=== PATIENT | female | born 1965 | race Caucasian/White ===

== ENCOUNTER → 2017-07-28 | Outpatient (REF) | payer OTHER ==
[~2017-07-28] MED LIST: BELV10TA PO; SULF1TAB72 PO; [UNRECOGNIZED DRUG - OTHER] PO
== END ==
LOC: M SFHCWAGY 11:04
PROVIDERS: ATTEND Nurse Practitioner Family
DX: Z12.4 Encounter for screening for malignant neoplasm of cervix (principal)

== ENCOUNTER → 2017-07-29 | Outpatient (CLI) | payer OTHER ==
--- NOTE | 2017-07-29 17:27 | REP ---
BILATERAL MAMMOGRAM WITH DIAGNOSTIC MAMMOGRAM LEFT BREAST AND LEFT BREAST ULTRASOUND: Bilateral mammography performed in the MLO and CC projections and compared to prior studies, the most recent of which is 04/28/2016. Reportedly there is a palpable abnormality posteriorly in the lower inner left breast and that area is marked on the skin with a triangular marker. The parenchymal pattern is unchanged with mild scattered fibroglandular elements appearing stable. There is no new mass or clustered microcalcification. Real-time sonographic evaluation of the left breast performed in the region of 8-o'clock left breast at the site of the reported palpable abnormality. No cystic or solid nodule is seen. IMPRESSION: ACR 2 benign. No mass or clustered microcalcifications. There is no mammographic or sonographic evidence of a mass at the site of the reported palpable abnormality in the lower inner left breast. Negative mammogram and ultrasound should not deter biopsy if there is a clinically suspicious palpable mass present. Clinical correlation and followup recommended. Recommend followup mammogram in one year. BI-RADS/ACR category 2 mammogram. Benign finding(s). Routine annual screening mammography (for women over age 40). This mammogram was interpreted with the aid of an FDA-approved computer-aided detection system. The patient states she/he had a clinical breast exam in July 2017. The patient letter being requested is M2. Signed by Massimo Carrera MD 07/29/2017 05:45 P
== END ==
LOC: M RAD 13:50
PROVIDERS: ATTEND Nurse Practitioner Family
DX: N63 Unspecified lump in breast (principal)
CPT/HCPCS: 76642; G0204

== ENCOUNTER → 2017-08-05 | Outpatient (CLI) | payer OTHER ==
--- NOTE | 2017-08-06 02:36 | REP ---
Clinical: Right lower quadrant pelvic pain . Technique: Transabdominal pelvic ultrasound followed by transvaginal examination for better evaluation of the endometrium and adnexa with color Doppler evaluation of the ovaries. Findings: Bladder is unremarkable and measures 10.2 x 9.3 x 6.9 cm . Heterogeneous anteverted uterus measures 6.7 x 3.0 x 4.8 cm and includes 1.0 cm right anterior fibroid, 1.5 cm posterior intramural fibroid, 1.7 cm anterior subserosal fibroid. The endometrial complex measures 3.9 mm thickness. Few subcentimeter Nabothian cyst noted in the lower uterine segment. Right ovary is normal in appearance and vascularity without evidence for torsion. Right ovary measures 2.6 x 1.5 x 1.8 cm ; R I = 0.46 . Left ovary was not identified. No pelvic fluid or adnexal mass lesion . Impression: 1. Heterogeneous anteverted uterus with three small discrete fibroids as described above. 2. Normal right ovary without torsion. Left ovary not visualized.
== END ==
LOC: M WHC 09:06
PROVIDERS: ATTEND Nurse Practitioner Family
DX: R10.31 Right lower quadrant pain (principal)

== ENCOUNTER → 2017-09-28 | Outpatient (REF) | payer OTHER | LOC: M SFHCPLAZ 10:25 | PROVIDERS: ATTEND Family Medicine | DX: R35.8 Other polyuria (principal) ==

== ENCOUNTER → 2018-02-24 | Outpatient (REF) | payer OTHER ==
[2018-02-24 10:52] LABS: PLATELET COUNT, AUTOMATED 286 10^3/uL (150-450)
[2018-02-24 11:14] LABS: INR 0.96; PROTHROMBIN TIME 12.8 SECONDS (12.4-14.5)
[2018-02-24 11:15] LABS: PARTIAL THROMBOPLASTIN TIME 27.2 SECONDS (26.8-37.9)
[2018-02-24 11:17] LABS: COLLAGEN EPINEPHRINE 126 SECONDS (74-162)
[2018-02-24 11:20] LABS: C REACTIVE PROTEIN QUANTITATIV 0.53 MG/DL (0.00-0.30)
== END ==
LOC: M LABDRAW1 10:15
DX: M47.896 Other spondylosis, lumbar region (principal)

== ENCOUNTER → 2018-06-22 | Outpatient (CLI) | payer OTHER ==
[2018-06-22 14:02] LABS: BASO # 0.1 10^3/uL (0.0-0.2); BASO % 0.5 % (0.0-1.0); EOS # 0.5 10^3/uL (0.0-0.50); EOS % 5.4 % (0.0-3.0); HEMATOCRIT 40.1 % (36.0-47.0); HEMOGLOBIN 13.1 g/dl (12.0-15.5); IMMATURE GRANULOCYTE % 0.4 % (0-3.0); LYMPH # 1.7 10^3/uL (1.5-4.5); LYMPH % 17.4 % (24.0-44.0); MEAN CORPUSCULAR HEMOGLOBIN 30.4 pg (27.0-33.0); MEAN CORPUSCULAR HGB CONC 32.7 g/dl (32.0-36.5); MONO # 0.7 10^3/uL (0.0-0.8); MONO % 7.7 % (0.0-5.0); NEUTROPHILS # 6.5 10^3/uL (1.8-7.7); NEUTROPHILS % 68.6 % (36.0-66.0); PLATELET COUNT, AUTOMATED 242 10^3/uL (150-450); RED BLOOD COUNT 4.31 10^6/uL (4.00-5.40); RED CELL DISTRIBUTION WIDTH 12.7 % (11.5-14.5); WHITE BLOOD COUNT 9.5 10^3/uL (4.0-10.0)
[2018-06-22 14:35] LABS: ALBUMIN 3.6 GM/DL (3.2-5.2); ALBUMIN/GLOBULIN RATIO 0.95 (1.00-1.93); ALKALINE PHOSPHATASE 104 U/L (45-117); ALT/SGPT 31 U/L (12-78); AMYLASE 41 U/L (25-115); ANION GAP 6 MEQ/L (8-16); AST/SGOT 16 U/L (7-37); BILIRUBIN,TOTAL 0.4 MG/DL (0.2-1.0); BLOOD UREA NITROGEN 15 MG/DL (7-18); CALCIUM LEVEL 8.9 MG/DL (8.5-10.1); CARBON DIOXIDE LEVEL 27 MEQ/L (21-32); CHLORIDE LEVEL 108 MEQ/L (98-107); CREATININE FOR GFR 0.75 MG/DL (0.55-1.30); GLOMERULAR FILTRATION RATE > 60.0 (>51); GLUCOSE, FASTING 79 MG/DL (70-100); LIPASE 201 U/L (73-393); POTASSIUM SERUM 4.3 MEQ/L (3.5-5.1); SODIUM LEVEL 141 MEQ/L (136-145); TOTAL PROTEIN 7.4 GM/DL (6.4-8.2)
== END ==
LOC: M WUC 12:34
DX: R10.814 Left lower quadrant abdominal tenderness (principal)
CPT/HCPCS: 82150

== ENCOUNTER → 2018-11-14 | Outpatient (REF) | payer OTHER ==
[2018-11-16 14:37] LABS: HPV HYBRID CAPTURE II Positive (Negative)
== END ==
LOC: M SFHCWAGY 10:07
PROVIDERS: ATTEND Nurse Practitioner Family
DX: Z12.4 Encounter for screening for malignant neoplasm of cervix (principal)

== ENCOUNTER → 2018-11-14 | Outpatient (CLI) | payer OTHER ==
--- NOTE | 2018-11-14 12:39 | REPMRS ---
Patient History The patient states she had a clinical breast exam in 11/2018. Patient is postmenopausal. Family history of breast cancer under age 50 in maternal cousin. Implants in both breasts, 1999. No Hormone Replacement Therapy Digital Woman Screen Mammo: November 14, 2018 - Exam #: [id number] Bilateral CC and MLO view(s) were taken. Technologist: Norma Montelongo, Technologist Prior study comparison: July 29, 2017, left breast digital mammo diagnostic bilateral, performed at [facility]. April 28, 2016, digital woman screen mammo performed at [facility]. November 06, 2014, digital woman screen mammo performed at [facility]. FINDINGS: There are scattered fibroglandular densities. There has been no change in the appearance of the mammogram from the prior studies. There is a mild amount of scattered fibroglandular density which is fairly symmetric. There is no interval development of dominant mass, architectural distortion, or clustered microcalcification suggestive of malignancy. 3-D tomosynthesis shows no additional findings. Assessment: BI-RADS/ACR category 1 mammogram. Negative. Recommendation Routine screening mammogram of both breasts in 1 year (for women over age 40). This patient's Lifetime Breast Cancer RIsk is estimated at 6.7 %. This mammogram was interpreted with the aid of an FDA-approved computer-aided dectection system. Electronically Signed By: Ky Mclain MD 11/14/18 [id number]
== END ==
LOC: M WHC 09:43
PROVIDERS: ATTEND Nurse Practitioner Family
DX: Z12.31 Encounter for screening mammogram for malignant neoplasm of breast (principal); Z78.0 Asymptomatic menopausal state; Z98.82 Breast implant status; Z80.3 Family history of malignant neoplasm of breast

== ENCOUNTER 2019-10-10 08:18 | Day surgery (SDC) | payer OTHER ==
[~2019-10-10] VITALS: Ht 165.1 cm; Wt 88.0 kg
[~2019-10-10 08:18] MED LIST changes: +HEAL1TAB6 PO; +MULTCAP PO; +NS 1,000 ML IV ONE; -SULF1TAB72 PO; +SULF400T14 PO
[2019-10-10] MEDS ORDERED: propofoL 200 MG/20 ML VIAL As Ordered ONE (09:40)
[2019-10-10] MEDS ORDERED: LIDOCAINE 2% INJ 100 MG/5 ML SDV (FOR ANES.) As Ordered ONE (09:40)
--- NOTE | 2019-10-10 09:40 | ROOR ---
Patient Name: Eileen Green Procedure Date: 10/10/2019 9:22 AM Date of : 1965 Age: 54 Room: [facility] Gender: Female Note Status: Finalized Procedure: Colonoscopy Indications: High risk colon cancer surveillance: Personal history of colonic polyps Providers: Kavin CLAYTON MD Referring MD: Tracy Heard NP Requesting Provider: Medicines: Monitored Anesthesia Care Complications: No immediate complications. Procedure: Pre-Anesthesia Assessment: - The heart rate, respiratory rate, oxygen saturations, blood pressure, adequacy of pulmonary ventilation, and response to care were monitored throughout the procedure. The Colonoscope was introduced through the anus and advanced to the cecum, identified by appendiceal orifice and ileocecal valve. The colonoscopy was performed without difficulty. The patient tolerated the procedure well. The quality of the bowel preparation was good. Findings: The perianal and digital rectal examinations were normal. A 5 mm polyp was found in the sigmoid colon. The polyp was sessile. The polyp was removed with a cold snare. Resection and retrieval were complete. Multiple diverticula were found in the sigmoid colon. Internal hemorrhoids were found during retroflexion. The hemorrhoids were medium-sized. The exam was otherwise without abnormality on direct and retroflexion views. Impression: - One 5 mm polyp in the sigmoid colon, removed with a cold snare. Resected and retrieved. - Diverticulosis in the sigmoid colon. - Internal hemorrhoids. - The examination was otherwise normal on direct and retroflexion views. Recommendation: - Repeat colonoscopy in 5 years for surveillance. Kavin Clayton MD Kavin CLAYTON MD 10/10/2019 9:40:17 AM Electronically signed by Kavin CLAYTON MD Number of Addenda: 0 Note Initiated On: 10/10/2019 9:22 AM Estimated Blood Loss: Estimated blood loss: none.
[2019-10-10 10:00] VITALS: BP 136/84
== END 2019-10-10 10:11 | disposition home or self-care (01) ==
LOC: M OPP 08:18
PROVIDERS: ATTEND Internal Medicine Gastroenterology
DX: Z12.11 Encounter for screening for malignant neoplasm of colon (principal); Z86.010 Personal history of colon polyps; K63.5 Polyp of colon; K64.8 Other hemorrhoids; K57.30 Diverticulosis of large intestine without perforation or abscess without bleeding; Z88.5 Allergy status to narcotic agent; Z88.8 Allergy status to other drugs, medicaments and biological substances; F17.210 Nicotine dependence, cigarettes, uncomplicated

== ENCOUNTER → 2019-11-22 | Outpatient (CLI) | payer OTHER ==
[~2019-11-22] MED LIST changes: -NS 1,000 ML IV ONE
--- NOTE | 2019-11-22 13:25 | REPMRS ---
Patient History The patient states she had a clinical breast exam in November 2019.Family history of breast cancer under age 50 in maternal cousin. Implants in both breasts, 1998. No Hormone Replacement Therapy Digital Woman Screen Mammo: November 22, 2019 - Exam #: [id number] Bilateral CC and MLO view(s) were taken. Technologist: Alice Jean, Technologist Prior study comparison: November 14, 2018, bilateral digital woman screen mammo performed at [facility]. July 29, 2017, left breast digital mammo diagnostic bilateral, performed at [facility]. April 28, 2016, digital woman screen mammo performed at [facility]. FINDINGS: There are scattered fibroglandular densities. There is some old stable postoperative scarring inferiorly on the right unchanged. There has been no change in the appearance of the mammogram from the prior studies. There is a mild amount of scattered fibroglandular density which is fairly symmetric. There is no interval development of dominant mass, architectural distortion, or grouped microcalcification suggestive of malignancy. 3-D tomosynthesis shows no additional findings. Assessment: BI-RADS/ACR category 2 mammogram. Benign Findings. Recommendation Routine screening mammogram of both breasts in 1 year (for women over age 40). This patient's Lifetime Breast Cancer Risk is estimated at 6.6 %. This mammogram was interpreted with the aid of an FDA-approved computer-aided dectection system. Electronically Signed By: Ky Mclain MD 11/22/19 1975
== END ==
LOC: M WHC 10:52
PROVIDERS: ATTEND Nurse Practitioner Family
DX: Z12.31 Encounter for screening mammogram for malignant neoplasm of breast (principal)

== ENCOUNTER → 2019-11-22 | Outpatient (REF) | payer OTHER | LOC: M SFHCWAGY 13:23 | PROVIDERS: ATTEND Nurse Practitioner Family | DX: Z12.4 Encounter for screening for malignant neoplasm of cervix (principal) ==

== ENCOUNTER → 2020-02-03 | Outpatient (CLI) | payer OTHER ==
[2020-02-03 18:10] LABS: BASO % 0.3 % (0.0-1.0); EOS # 0.3 10^3/uL (0.0-0.5); EOS % 2.6 % (0.0-3.0); HEMATOCRIT 42.8 % (36.0-47.0); HEMOGLOBIN 13.6 g/dl (12.0-15.5); LYMPH # 1.3 10^3/uL (1.5-5.0); LYMPH % 10.9 % (24.0-44.0); MEAN CORPUSCULAR HEMOGLOBIN 29.6 pg (27.0-33.0); MEAN CORPUSCULAR HGB CONC 31.8 g/dl (32.0-36.5); MONO # 0.9 10^3/uL (0.0-0.8); MONO % 7.1 % (0.0-5.0); NEUTROPHILS # 9.5 10^3/uL (1.5-8.5); NEUTROPHILS % 78.8 % (36.0-66.0); PLATELET COUNT, AUTOMATED 308 10^3/uL (150-450); WHITE BLOOD COUNT 12.1 10^3/uL (4.0-10.0)
[2020-02-03 18:37] LABS: ALBUMIN 3.9 GM/DL (3.2-5.2); ALT/SGPT 30 U/L (12-78); BILIRUBIN,TOTAL 0.4 MG/DL (0.2-1.0); BLOOD UREA NITROGEN 16 MG/DL (7-18); CALCIUM LEVEL 9.3 MG/DL (8.5-10.1); CARBON DIOXIDE LEVEL 26 MEQ/L (21-32); CHLORIDE LEVEL 106 MEQ/L (98-107); CREATININE FOR GFR 0.86 MG/DL (0.55-1.30); GLOMERULAR FILTRATION RATE > 60.0 (>51); GLUCOSE, FASTING 94 MG/DL (70-100); LIPASE 166 U/L (73-393); POTASSIUM SERUM 4.2 MEQ/L (3.5-5.1); SODIUM LEVEL 138 MEQ/L (136-145); TOTAL PROTEIN 7.6 GM/DL (6.4-8.2)
== END ==
LOC: M WUC 14:46
PROVIDERS: ATTEND Physician Assistant
DX: R10.10 Upper abdominal pain, unspecified (principal)

== ENCOUNTER → 2020-06-10 | Outpatient (REF) | payer OTHER ==
[2020-07-18 08:13] LABS: A1A FOR PHENOTYPE SEE SEPARATE REPORT MG/DL; ALPHA-1-ANTITRYPSIN PHENOTYPE See Separate Report
== END ==
LOC: M LAB REF 08:39
PROVIDERS: ATTEND Physician Assistant
DX: J43.1 Panlobular emphysema (principal)

== ENCOUNTER → 2020-07-07 | Outpatient (REF) | payer OTHER | LOC: M LAB REF 10:35 | PROVIDERS: ATTEND Physician Assistant | DX: R10.814 Left lower quadrant abdominal tenderness (principal) ==

== ENCOUNTER → 2020-07-07 | Outpatient (CLI) | payer OTHER ==
[2020-07-07 11:33] LABS: BASO % 0.5 % (0.0-1.0); EOS # 0.2 10^3/uL (0.0-0.5); EOS % 3.5 % (0.0-3.0); HEMATOCRIT 41.8 % (36.0-47.0); HEMOGLOBIN 13.5 g/dl (12.0-15.5); LYMPH # 1.6 10^3/uL (1.5-5.0); LYMPH % 24.8 % (24.0-44.0); MEAN CORPUSCULAR HEMOGLOBIN 30.2 pg (27.0-33.0); MEAN CORPUSCULAR HGB CONC 32.3 g/dl (32.0-36.5); MEAN CORPUSCULAR VOLUME 93.5 fl (80.0-96.0); MONO # 0.4 10^3/uL (0.0-0.8); MONO % 6.5 % (0.0-5.0); NEUTROPHILS # 4.1 10^3/uL (1.5-8.5); NEUTROPHILS % 64.4 % (36.0-66.0); PLATELET COUNT, AUTOMATED 270 10^3/uL (150-450); RED BLOOD COUNT 4.47 10^6/uL (4.00-5.40); WHITE BLOOD COUNT 6.3 10^3/uL (4.0-10.0)
[2020-07-07 11:39] LABS: ALBUMIN 3.6 GM/DL (3.2-5.2); ALT/SGPT 22 U/L (12-78); BILIRUBIN,TOTAL 0.4 MG/DL (0.2-1.0); BLOOD UREA NITROGEN 11 MG/DL (7-18); CALCIUM LEVEL 8.8 MG/DL (8.5-10.1); CARBON DIOXIDE LEVEL 26 MEQ/L (21-32); CHLORIDE LEVEL 111 MEQ/L (98-107); CREATININE FOR GFR 0.72 MG/DL (0.55-1.30); GLOMERULAR FILTRATION RATE > 60.0 (>51); GLUCOSE, FASTING 98 MG/DL (70-100); POTASSIUM SERUM 4.3 MEQ/L (3.5-5.1); SODIUM LEVEL 142 MEQ/L (136-145); TOTAL PROTEIN 7.1 GM/DL (6.4-8.2)
== END ==
LOC: M WUC 10:20
PROVIDERS: ATTEND Physician Assistant
DX: R10.814 Left lower quadrant abdominal tenderness (principal)

== ENCOUNTER → 2020-07-08 | Outpatient (CLI) | payer OTHER ==
[~2020-07-08] MED LIST changes: +GASTROGRAFIN SOLUTION 30ML (Q9963) As Ordered ONE; +ISOVUE-370 76% 100ML VIAL As Ordered ONE
--- NOTE | 2020-07-08 12:27 | REPVR ---
PROCEDURE INFORMATION: Exam: CT Abdomen And Pelvis With Contrast Exam date and time: 07/08/2020 11:33 AM Age: 54 years old Clinical indication: Abdominal pain; Localized; Left lower quadrant (llq); Additional info: Llq pain TECHNIQUE: Imaging protocol: Computed tomography of the abdomen and pelvis with intravenous contrast. Radiation optimization: All CT scans at this facility use at least one of these dose optimization techniques: automated exposure control; mA and/or kV adjustment per patient size (includes targeted exams where dose is matched to clinical indication); or iterative reconstruction. Contrast material: ISOVUE 370; Contrast volume: 100 ml; Contrast route: INTRAVENOUS (IV); COMPARISON: PELVIS NON-OB COMPLETE US 08/05/2017 9:07 AM FINDINGS: Pleural space: No acute airspace or pleural disease. Liver: 7 mm left hepatic lobe cyst, along with fatty infiltration of the liver. Gallbladder and bile ducts: No cholelithiasis or biliary ductal dilatation. Pancreas: 8 mm nodular hypodensity in the pancreatic body, which does not fulfill CT criteria for a simple cyst. No peripancreatic inflammation or ductal dilatation. Spleen: Enlarged spleen measuring 12.7 cm in length. Adrenals: Subtle left adrenal nodularity. Kidneys and ureters: Bilateral pelvicaliceal dilatation versus parapelvic cysts, which are poorly differentiated in the absence of collecting system contrast. No ureteral dilatation. Stomach and bowel: Colonic dilatation and prominent stool. Sigmoid diverticulosis with subtle infiltration of pericolonic fat at the junction of the distal descending and sigmoid colon (series 201: Image 119), consistent with diverticulitis in the appropriate clinical setting. Appendix: Appendix not visualized. Intraperitoneal space: No significant free fluid. Vasculature: Normal caliber of the abdominal aorta. Lymph nodes: Subcentimeter lymph nodes. Bladder: Circumferential bladder wall thickening. Reproductive: 12 mm exophytic fibroid arising from the right anterior lateral aspect of the uterus. 1.3 cm right ovarian cyst. Bones/joints: Mild degenerative change . IMPRESSION: 1. Sigmoid diverticulosis with subtle infiltration of pericolonic fat at the junction of the distal descending and sigmoid colon (series 201: Image 119), consistent with diverticulitis in the appropriate clinical setting. 2. Bilateral pelvicaliceal dilatation versus parapelvic cysts, which are poorly differentiated in the absence of collecting system contrast. 3. Circumferential bladder wall thickening. 4. Additional findings as described above. Electronically signed by: Stanton Warren On 07/08/2020 12:26:09 PM
== END ==
LOC: M RAD 09:45
PROVIDERS: ATTEND Physician Assistant
DX: N83.201 Unspecified ovarian cyst, right side (principal); K76.89 Other specified diseases of liver; R16.1 Splenomegaly, not elsewhere classified
CPT/HCPCS: 74177; Q9963; Q9967

== ENCOUNTER → 2020-07-23 | Outpatient (CLI) | payer OTHER ==
[~2020-07-23] MED LIST changes: -GASTROGRAFIN SOLUTION 30ML (Q9963) As Ordered ONE; -ISOVUE-370 76% 100ML VIAL As Ordered ONE; +METHACHOLINE KIT (J7674) INH ONE
--- NOTE | 2020-07-23 09:51 | PFTRPT ---
Visit Date: 07/23/2020 Second ID: [id number] Referring Doctor: MINNIE Dawn Marcus, M Height: 65.00 Inches Weight: 200.00 Lbs BSA: 1.98 Diagnosis: R05 QUALITY: Study of excellent technical quality. PROCEDURE: Under protocol, methacholine was administered. Even after a maximum dose of 25 mg or 188.875 CDUs, no provocation dose ever achieved. IMPRESSION: Negative methacholine challenge study. MTDD
== END ==
LOC: M CARPUL 09:01
PROVIDERS: ATTEND Physician Assistant
DX: R05 Cough (principal)
CPT/HCPCS: 94070; 95070; J7674

== ENCOUNTER → 2020-08-29 | Outpatient (CLI) | payer OTHER ==
[~2020-08-29] MED LIST changes: -METHACHOLINE KIT (J7674) INH ONE; +PROHANCE 279.3MG/ML 15ML VIAL As Ordered ONE; +PROHANCE 279.3MG/ML 5ML VIAL As Ordered ONE
--- NOTE | 2020-08-29 13:04 | REP ---
INDICATION: ABN FINDING ON DI IMAGING, PANCREATIC NODULE. COMPARISON: CT 07/08/2020 TECHNIQUE: Multiple sequences obtained in the axial and coronal planes prior to and following the intravenous administration of 18 mL ProHance. FINDINGS: The liver and spleen are normal in size. Again noted is a 1 cm nonenhancing cyst in the lateral segment of the left lobe of the liver. Gallbladder demonstrates 2 tiny possible polyps only a couple of mm in diameter, 1 along the anterior wall and 1 along the posterior wall. There is no evidence of significant biliary dilatation. Common bile duct has a maximum diameter 7 mm which is upper limits of normal. Spleen demonstrates no intrinsic abnormality. The adrenal glands are normal. In the body of the pancreas, as seen on the recent CT scan, is a cystic structure with slightly irregular margins. There appears to be a thin internal septation. There is not significant enhancement following the administration of gadolinium. There is no pancreatic duct dilatation. The kidneys demonstrate several bilateral parapelvic cysts, the largest is approximately 2 cm in diameter. There is no significant adenopathy or free fluid in the abdomen. IMPRESSION: In the body of the pancreas, as seen on the recent CT scan, is a cystic structure with slightly irregular margins. There appears to be a thin internal septation. There is not significant enhancement following the administration of gadolinium. There are no suspicious characteristics. Recommend follow-up MRI in 1 year. <Electronically signed by Massimo Carrera > 08/29/20 2365
== END ==
LOC: M RAD 08:42
PROVIDERS: ATTEND Physician Assistant Medical
DX: R93.3 Abnormal findings on diagnostic imaging of other parts of digestive tract (principal); K76.89 Other specified diseases of liver; K86.2 Cyst of pancreas
CPT/HCPCS: 74183; A9576

== ENCOUNTER → 2020-09-01 | Outpatient (CLI) | payer OTHER ==
[~2020-09-01] MED LIST changes: -PROHANCE 279.3MG/ML 15ML VIAL As Ordered ONE; -PROHANCE 279.3MG/ML 5ML VIAL As Ordered ONE
== END ==
LOC: M WUC 15:06
PROVIDERS: ATTEND Physician Assistant Medical
DX: R93.3 Abnormal findings on diagnostic imaging of other parts of digestive tract (principal); K86.2 Cyst of pancreas

== ENCOUNTER → 2020-09-18 | Outpatient (CLI) | payer OTHER ==
--- NOTE | 2020-09-19 02:53 | REP ---
INDICATION: CONSTIPATION COMPARISON: None. TECHNIQUE: Supine views of the abdomen and pelvis. FINDINGS: Bowel gas pattern is nonspecific and without obstruction or perforation. Mild to moderate fecal stasis consistent with constipation is suggested. No organomegaly. No abnormal calcifications. Skeletal structures intact. IMPRESSION: [id number] fecal stasis consistent with given history of constipation. No obstruction or perforation. <Electronically signed by Koko Gonzalez > 09/19/20 [id number]
== END ==
LOC: M WUC 17:36
PROVIDERS: ATTEND Nurse Practitioner Family
DX: K59.00 Constipation, unspecified (principal)

== ENCOUNTER → 2020-11-07 | Outpatient (CLI) | payer OTHER ==
[~2020-11-07] MED LIST changes: +PROA1AER2
== END ==
LOC: M LABSMTC 11:04
PROVIDERS: ATTEND Anesthesiology
DX: Z01.812 Encounter for preprocedural laboratory examination (principal); Z20.828 Contact with and (suspected) exposure to other viral communicable diseases

== ENCOUNTER 2020-11-12 11:25 | Day surgery (SDC) | payer OTHER ==
[~2020-11-12] VITALS: Ht 165.1 cm; Wt 91.6 kg
[~2020-11-12 11:25] MED LIST changes: +NS 1,000 ML IV ONE
[2020-11-12] MEDS ORDERED: propofoL 500 MG/50 ML VIAL As Ordered ONE (13:18)
[2020-11-12] MEDS ORDERED: fentaNYL 100 MCG/2 ML INJECTION (J3010) As Ordered ONE (13:18)
[2020-11-12] MEDS ORDERED: LIDOCAINE 2% 100MG/5ML SDV (FOR ANES.) As Ordered ONE (13:18)
--- NOTE | 2020-11-12 13:31 | ROOR ---
Patient Name: Eileen Green Procedure Date: 11/12/2020 1:12 PM Date of : 1965 Age: 55 Room: [facility] Gender: Female Note Status: Finalized Procedure: Upper GI endoscopy Indications: Chronic cough Providers: Kavin BELLO MD Referring MD: Alyce BILLY DO Requesting Provider: Medicines: Monitored Anesthesia Care Complications: No immediate complications. Procedure: Pre-Anesthesia Assessment: - The heart rate, respiratory rate, oxygen saturations, blood pressure, adequacy of pulmonary ventilation, and response to care were monitored throughout the procedure. The Endoscope was introduced through the mouth, and advanced to the second part of duodenum. The upper GI endoscopy was accomplished without difficulty. The patient tolerated the procedure well. Findings: The esophagus was normal. The stomach was normal. The examined duodenum was normal. The MCMILLAN capsule with delivery system was introduced through the mouth and advanced into the esophagus, such that the MCMILLAN pH capsule was positioned 31 cm from the incisors, which was 5 cm proximal to the GE junction. The MCMILLAN pH capsule was then deployed and attached to the esophageal mucosa. The delivery system was then withdrawn. Endoscopy was utilized for probe placement and diagnostic evaluation. The scope was reinserted to evaluate placement of the MCMILLAN capsule. Visualization showed the MCMILLAN capsule to be in an appropriate position. Impression: - Normal esophagus. - Normal stomach. - Normal examined duodenum. - The MCMILLAN pH capsule was deployed. - No specimens collected. Recommendation: - Telephone endoscopist for study results in 2 weeks. Procedure Code(s): --- Professional --- 95605, Esophagogastroduodenoscopy, flexible, transoral; diagnostic, including collection of specimen(s) by brushing or washing, when performed (separate procedure) Diagnosis Code(s): --- Professional --- R05, Cough CPT copyright 2019 [employer]. All rights reserved. The codes documented in this report are preliminary and upon doughnut glazier review may be revised to meet current compliance requirements. Kavin Bello MD Kavin BELLO MD 11/12/2020 1:30:26 PM Electronically signed by Kavin BELLO MD Number of Addenda: 0 Note Initiated On: 11/12/2020 1:12 PM Estimated Blood Loss: Estimated blood loss: none.
[2020-11-12 13:55] VITALS: BP 126/77
== END 2020-11-12 13:59 | disposition home or self-care (01) ==
LOC: M OPP 11:25
PROVIDERS: ATTEND Internal Medicine Gastroenterology
DX: R05 Cough (principal)
CPT/HCPCS: 43235; 91035; J3010

== ENCOUNTER → 2020-11-14 | Outpatient (REF) | payer MEDICAID, OTHER ==
[~2020-11-14] MED LIST changes: -NS 1,000 ML IV ONE
[2020-11-14 16:17] LABS: APPEARANCE, URINE HAZY (CLEAR); BACTERIA, URINE AUTO 1+ (NEGATIVE); BILIRUBIN, URINE AUTO NEGATIVE (NEGATIVE); BLOOD, URINE BLOOD NEGATIVE (NEGATIVE); COLOR, URINE YELLOW (YELLOW); GLUCOSE, URINE (UA) AUTO NEGATIVE (NEGATIVE); KETONE, URINE AUTO NEGATIVE (NEGATIVE); LEUKOCYTE ESTERASE, URINE AUTO NEGATIVE (NEGATIVE); MUCUS, URINE SMALL (NEGATIVE); NITRITE, URINE AUTO NEGATIVE (NEGATIVE); PROTEIN, URINE AUTO NEGATIVE (NEGATIVE); RBC, URINE AUTO 0 /HPF (0-3); SPECIFIC GRAVITY URINE AUTO 1.013 (1.002-1.035); SQUAMOUS EPITHELIAL CELL UR AU 2 /HPF (0-6); UROBILINOGEN, URINE AUTO 0.2 mg/dL (0.0-2.0); WBC, URINE AUTO 2 /HPF (0-3)
[2020-11-14 16:46] LABS: BLOOD UREA NITROGEN 13 MG/DL (7-18); CALCIUM LEVEL 9.1 MG/DL (8.5-10.1); CARBON DIOXIDE LEVEL 28 MEQ/L (21-32); CHLORIDE LEVEL 108 MEQ/L (98-107); GLOMERULAR FILTRATION RATE > 60.0 (>51); GLUCOSE, FASTING 96 MG/DL (70-100); POTASSIUM SERUM 4.5 MEQ/L (3.5-5.1); SODIUM LEVEL 139 MEQ/L (136-145)
[2020-11-14 19:47] LABS: HEMOGLOBIN A1c 5.3 %
== END ==
LOC: M SFHCCLAY 09:27
PROVIDERS: ATTEND Family Medicine
DX: R35.0 Frequency of micturition (principal)

== ENCOUNTER → 2020-12-10 | Outpatient (REF) | payer OTHER | LOC: M SFHCWAGY 13:49 | PROVIDERS: ATTEND Nurse Practitioner Family | DX: Z12.4 Encounter for screening for malignant neoplasm of cervix (principal) ==

== ENCOUNTER → 2020-12-10 | Outpatient (CLI) | payer OTHER ==
--- NOTE | 2020-12-10 09:32 | REPMRS ---
Patient History The patient states she had a clinical breast exam in 2020. Patient is postmenopausal. Family history of breast cancer under age 50 in maternal cousin. Explants from both breasts, November 08, 2003. Implants in both breasts, November 08, 1998. No Hormone Replacement Therapy Digital Woman Screen Mammo: December 10, 2020 - Exam #: [id number] Bilateral CC and MLO view(s) were taken. Technologist: Puja Jenkins, Technologist Prior study comparison: November 22, 2019, bilateral digital woman screen mammo performed at [facility]. November 14, 2018, bilateral digital woman screen mammo performed at [facility]. July 29, 2017, left breast digital mammo diagnostic bilateral, performed at [facility]. FINDINGS: There are scattered fibroglandular densities. The Volpara volumetric breast density category is:B. There is a stable area of postoperative scarring again noted in linear distribution inferiorly in the right breast unchanged. There has been no change in the appearance of the mammogram from the prior studies. There is a mild amount of scattered fibroglandular density which is fairly symmetric. There is no interval development of dominant mass, architectural distortion, or grouped microcalcification suggestive of malignancy. 3-D tomosynthesis shows no additional findings. Assessment: BI-RADS/ACR category 2 mammogram. Benign Findings. Recommendation Routine screening mammogram of both breasts in 1 year (for women over age 40). This patient's [facility] Lifetime Breast Cancer Risk is estimated at 6.4 %. This mammogram was interpreted with the aid of an FDA-approved computer-aided dectection system. Electronically Signed By: Ky Mclain MD 12/10/20 0932
== END ==
LOC: M WHC 08:16
PROVIDERS: ATTEND Nurse Practitioner Family
DX: Z12.31 Encounter for screening mammogram for malignant neoplasm of breast (principal)

== ENCOUNTER → 2020-12-11 | Outpatient (CLI) | payer OTHER ==
--- NOTE | 2020-12-11 14:41 | REP ---
INDICATION: PANLOBULAR EMPHYSEMA COMPARISON: 12/07/2019 (outside examination) TECHNIQUE: Axial noncontrast images from the thoracic inlet to the upper abdomen with coronal and sagittal reformations. This CT examination was performed using the following dose reduction techniques: Automated exposure control, adjustment of mA and/or kv according to the patient's size, and use of iterative reconstruction technique. FINDINGS: Bilateral lung ludwig are well aerated, relatively symmetric and clear. No consolidation, significant nodule, or mass lesion. No effusion. No pneumothorax. Tracheobronchial tree is patent and normal. No obvious adenopathy. Mediastinum is grossly unremarkable. IMPRESSION: Lung-RADS category 1. No suspicious nodule or mass lesion. No obvious pulmonary parenchymal pathology appreciated. Management recommendations include annual low-dose CT surveillance. <Electronically signed by Koko Gonzalez > 12/11/20 2151
== END ==
LOC: M RAD 12:44
PROVIDERS: ATTEND Physician Assistant
DX: J43.1 Panlobular emphysema (principal)

== ENCOUNTER → 2020-12-16 | Outpatient (REF) | payer MEDICAID, OTHER ==
[2020-12-16 16:35] LABS: HEMATOCRIT 41.2 % (36.0-47.0); MEAN CORPUSCULAR HGB CONC 31.6 g/dl (32.0-36.5); MEAN CORPUSCULAR VOLUME 91.8 fl (80.0-96.0); PLATELET COUNT, AUTOMATED 302 10^3/uL (150-450); RED BLOOD COUNT 4.49 10^6/uL (4.00-5.40); WHITE BLOOD COUNT 7.9 10^3/uL (4.0-10.0)
== END ==
LOC: M SFHCCLAY 12:00
PROVIDERS: ATTEND Physician Assistant
DX: R00.2 Palpitations (principal)

== ENCOUNTER → 2021-02-18 | Outpatient (CLI) | payer OTHER ==
--- NOTE | 2021-02-18 10:29 | REP ---
INDICATION: LOW BACK PAIN. COMPARISON: None. TECHNIQUE: AP, lateral, and swimmer's views of the thoracic spine FINDINGS: Alignment and kyphosis maintained. No acute fracture/compression injury or subluxation. IMPRESSION: Age-appropriate examination. <Electronically signed by Koko Gonzalez > 02/18/21 1022
--- NOTE | 2021-02-18 10:31 | REP ---
INDICATION: LOW BACK PAIN. COMPARISON: None. TECHNIQUE: AP, lateral, flexion/extension, oblique and coned-down views of the lumbosacral spine FINDINGS: Very minimal chronic appearing levoconvex scoliosis centered at approximately L2-3. Alignment and lordosis is otherwise maintained. There is no evidence for acute fracture/compression injury or subluxation. No obvious spondylolysis or spondylolisthesis. Disc spaces are relatively maintained. Minimal endplate sclerosis at the L5-S1 level without disc narrowing noted. IMPRESSION: Essentially age-appropriate lumbosacral spine radiographs. <Electronically signed by Koko Gonzalez > 02/18/21 1024
== END ==
LOC: M SOG 09:54
PROVIDERS: ATTEND Orthopaedic Surgery Sports Medicine
DX: M54.5 Low back pain (principal)

== ENCOUNTER → 2021-03-10 | Outpatient (CLI) | payer OTHER ==
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
== END ==
LOC: M PAIN 08:30
PROVIDERS: ATTEND Nurse Practitioner Family
DX: M50.30 Other cervical disc degeneration, unspecified cervical region (principal); M51.36 Other intervertebral disc degeneration, lumbar region; M51.34 Other intervertebral disc degeneration, thoracic region; G89.29 Other chronic pain; G47.30 Sleep apnea, unspecified; Z88.5 Allergy status to narcotic agent; Z88.6 Allergy status to analgesic agent; Z88.8 Allergy status to other drugs, medicaments and biological substances; Z79.51 Long term (current) use of inhaled steroids; Z79.899 Other long term (current) drug therapy

== ENCOUNTER → 2021-03-25 | Outpatient (CLI) | payer OTHER ==
--- NOTE | 2021-03-25 12:19 | REP ---
INDICATION: DDD CERVICAL, DDD THORACIC, DDD LUMBAR. COMPARISON: Comparison MRI study is from 26 September 2015.. TECHNIQUE: Sagittal and axial T1 and T2-weighted scans are acquired in the usual fashion with and without fat saturation. Sequences include spin echo, turbo spin-echo, and STIR imaging sequences. FINDINGS: There is slight straightening of the normal cervical lordosis. Cortical and medullary bone signal intensity are normal. There is a small hemangioma in the C7 vertebral body. Vertebral body heights are preserved. Alignment is normal. The cervical cord is normal in course, caliber, and signal intensity on T1 and T2 weighted scans. No extra-spinal abnormality is observed. Axial and sagittal images at C2-3 and C3-4 remain unremarkable. At C4-5, there is minimal central disc bulging is effacing the ventral subarachnoid space. No cord compression is seen. No spinal stenosis or foraminal narrowing is seen. At C5-6, there is again noted to be degenerative disc narrowing and decreased signal intensity. Some posterior osteophytic ridging and diffuse disc bulging is seen. There is bilateral uncovertebral spurring producing foraminal narrowing mild in degree. This appears to be unchanged from the 03/13 disc level on the scan from September 26, 2015. At C6-7 there is no evidence of focal disc protrusion, spinal stenosis, or foraminal narrowing. The C7-T1 level is unremarkable as well. IMPRESSION: Degenerative spondylosis changes at C5-6 with bilateral uncovertebral spurring and diffuse disc bulging and osteophytic ridging producing mild thecal sac narrowing and mild bilateral neural foraminal narrowing. Unchanged from the 26 September 2015 prior study. <Electronically signed by Ky Mclain > 03/25/21 [id number]
--- NOTE | 2021-03-25 12:23 | REP ---
INDICATION: DDD CERVICAL, DDD THORACIC, DDD LUMBAR. COMPARISON: Comparison thoracic spine MRI study is from November 02, 2017.. TECHNIQUE: Sagittal and axial T1 and T2-weighted scans are acquired in the usual fashion with and without fat saturation. Sequences include spin echo, turbo spin-echo, and STIR imaging sequences. FINDINGS: Parapelvic renal cysts are again noted bilaterally. Thoracic vertebral body heights are preserved. Alignment remains normal. No bony destructive lesion is seen. Thoracic cord is normal in course, caliber and signal intensity. No cord compressive lesion is seen. The tip of the conus medullaris is normal in position and appearance at the top of T12. Axial and sagittal images at T6-T7 again demonstrated very small central focal disc protrusion effacing the ventral subarachnoid space. No cord compression is seen. This is unchanged in appearance from the 2017 prior study. No new thoracic disc protrusion is seen. No neural foraminal narrowing is observed. No abnormal intrinsic cord signal abnormality is seen. Study is otherwise unremarkable. IMPRESSION: Small central focal disc protrusion at T6-T7 effacing the ventral subarachnoid space. No cord compression is seen. Findings unchanged from the 2017 prior study. Otherwise negative. <Electronically signed by Ky Mclain > 03/25/21 [id number]
--- NOTE | 2021-03-25 12:47 | REP ---
INDICATION: DDD CERVICAL, DDD THORACIC, DDD LUMBAR. COMPARISON: Comparison MRI study 11/02/2017.. TECHNIQUE: Sagittal and axial T1 and T2-weighted scans are acquired in the usual fashion with and without fat saturation. Sequences include spin echo, turbo spin-echo, and STIR imaging sequences. FINDINGS: There are small benign hemangiomas in the L2 and L4 vertebral body again noted. Cortical and medullary bone signal intensity are otherwise intact. Alignment is normal. There is no evidence of spondylolysis or spondylolisthesis. The tip of the conus medullaris is normal in position and appearance at T11-12. Axial and sagittal images taken at L1-L2 show no abnormality. At L2-3, there is mild decreased disc space signal intensity and minimal diffuse disc bulging is present. No spinal stenosis or foraminal narrowing is seen. At L3 - 4, there is mild diffuse disc bulging. The disc is slightly narrowed. There is no evidence of spinal stenosis. No neural foraminal encroachment is appreciated. Disc bulging is unchanged. At L4-5, there is mild diffuse disc bulging. Canal size is borderline due to diffuse disc bulging in combination with facet and some ligamentum flavum hypertrophy. Midline AP dimension of the thecal sac at this level is 9.6 mm. These findings are unchanged. At L5-S1, there is mild facet hypertrophy and minimal central disc bulging. No thecal sac compression. No neural foraminal narrowing. IMPRESSION: Degenerative spondylosis changes including mild disc bulging at L4-5 and borderline canal size with facet and ligamentum flavum hypertrophy. Findings are unchanged from the comparison study of 11/02/2017. <Electronically signed by Ky Mclain > 03/25/21 0947
== END ==
LOC: M PLARAD 10:02
PROVIDERS: ATTEND Nurse Practitioner Family
DX: M51.35 Other intervertebral disc degeneration, thoracolumbar region (principal); M50.30 Other cervical disc degeneration, unspecified cervical region

== ENCOUNTER → 2021-04-21 | Outpatient (CLI) | payer OTHER ==
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
== END ==
LOC: M PAIN 09:00
PROVIDERS: ATTEND Nurse Practitioner Family
DX: M46.1 Sacroiliitis, not elsewhere classified (principal); M51.26 Other intervertebral disc displacement, lumbar region; J43.9 Emphysema, unspecified; G47.30 Sleep apnea, unspecified; I10 Essential (primary) hypertension; Z79.899 Other long term (current) drug therapy; Z88.5 Allergy status to narcotic agent; Z88.8 Allergy status to other drugs, medicaments and biological substances

== ENCOUNTER → 2021-08-11 | Outpatient (REF) | payer OTHER ==
[2021-08-11 16:28] LABS: BLOOD UREA NITROGEN 15 MG/DL (7-18); CALCIUM LEVEL 9.5 MG/DL (8.5-10.1); CARBON DIOXIDE LEVEL 25 MEQ/L (21-32); CHLORIDE LEVEL 109 MEQ/L (98-107); CREATININE FOR GFR 0.79 MG/DL (0.55-1.30); GLOMERULAR FILTRATION RATE > 60.0 (>51); GLUCOSE, FASTING 89 MG/DL (70-100); POTASSIUM SERUM 4.3 MEQ/L (3.5-5.1); SODIUM LEVEL 140 MEQ/L (136-145)
== END ==
LOC: M SFHCCLAY 10:03
PROVIDERS: ATTEND Family Medicine
DX: I11.9 Hypertensive heart disease without heart failure (principal)

== ENCOUNTER → 2021-11-17 | Outpatient (REF) | payer OTHER ==
[2021-11-17 16:07] LABS: BLOOD UREA NITROGEN 12 MG/DL (7-18); CALCIUM LEVEL 9.2 MG/DL (8.5-10.1); CARBON DIOXIDE LEVEL 25 MEQ/L (21-32); CHLORIDE LEVEL 109 MEQ/L (98-107); CREATININE FOR GFR 0.79 MG/DL (0.55-1.30); GLOMERULAR FILTRATION RATE > 60.0 (>51); GLUCOSE, FASTING 94 MG/DL (70-100); POTASSIUM SERUM 4.5 MEQ/L (3.5-5.1); SODIUM LEVEL 140 MEQ/L (136-145)
== END ==
LOC: M SFHCCLAY 10:02
PROVIDERS: ATTEND Family Medicine
DX: I11.9 Hypertensive heart disease without heart failure (principal)

== ENCOUNTER → 2021-12-23 | Outpatient (CLI) | payer OTHER | LOC: M WHC 14:40 | PROVIDERS: ATTEND Obstetrics & Gynecology | DX: Z12.31 Encounter for screening mammogram for malignant neoplasm of breast (principal) ==

== ENCOUNTER → 2021-12-23 | Outpatient (REF) | payer OTHER | LOC: M SFHCWAGY 19:00 | PROVIDERS: ATTEND Obstetrics & Gynecology | DX: Z01.419 Encounter for gynecological examination (general) (routine) without abnormal findings (principal); R87.618 Other abnormal cytological findings on specimens from cervix uteri ==

== ENCOUNTER → 2021-12-29 | Outpatient (CLI) | payer OTHER | LOC: M RAD 12:19 | PROVIDERS: ATTEND Physician Assistant | DX: R91.8 Other nonspecific abnormal finding of lung field (principal) ==

== ENCOUNTER → 2021-12-29 | Outpatient (CLI) | payer OTHER | LOC: M WHC 14:06 | PROVIDERS: ATTEND Obstetrics & Gynecology | DX: Z01.411 Encounter for gynecological examination (general) (routine) with abnormal findings (principal); D25.9 Leiomyoma of uterus, unspecified ==

== ENCOUNTER → 2022-01-08 | Outpatient (REF) | payer OTHER | LOC: M SFHCDERM 14:21 | PROVIDERS: ATTEND Physician Assistant | DX: D22.5 Melanocytic nevi of trunk (principal) ==

== ENCOUNTER → 2022-01-15 | Outpatient (REF) | payer OTHER | LOC: M SFHCCLAY 14:29 | PROVIDERS: ATTEND Nurse Practitioner Family | DX: R35.0 Frequency of micturition (principal) ==

== ENCOUNTER → 2022-02-05 | Outpatient (CLI) | payer OTHER | LOC: M PLAIMG 12:06 | PROVIDERS: ATTEND Orthopaedic Surgery | DX: M47.816 Spondylosis without myelopathy or radiculopathy, lumbar region (principal) ==

== ENCOUNTER → 2022-03-13 | Outpatient (REF) | payer OTHER | LOC: M LAB REF 12:41 | PROVIDERS: ATTEND Internal Medicine | DX: R30.0 Dysuria (principal) ==

== ENCOUNTER → 2022-04-21 | Outpatient (CLI) | payer OTHER | LOC: M SOG 08:02 | PROVIDERS: ATTEND Orthopaedic Surgery Hand Surgery | DX: M79.641 Pain in right hand (principal) ==

== ENCOUNTER → 2022-06-01 | Outpatient (REF) | payer OTHER ==
[2022-06-01 16:40] LABS: HEMATOCRIT 38.8 % (36.0-47.0); HEMOGLOBIN 12.7 g/dl (12.0-15.5); MEAN CORPUSCULAR HEMOGLOBIN 29.4 pg (27.0-33.0); MEAN CORPUSCULAR HGB CONC 32.7 g/dl (32.0-36.5); MEAN CORPUSCULAR VOLUME 89.8 fl (80.0-96.0); PLATELET COUNT, AUTOMATED 261 10^3/uL (150-450); RED BLOOD COUNT 4.32 10^6/uL (4.00-5.40); WHITE BLOOD COUNT 5.9 10^3/uL (4.0-10.0)
[2022-06-01 17:10] LABS: ERYTHROCYTE SEDIMENTATION RATE 15 mm/hr (0-30)
[2022-06-01 20:33] LABS: BLOOD UREA NITROGEN 13 MG/DL (7-18); CALCIUM LEVEL 8.9 MG/DL (8.5-10.1); CARBON DIOXIDE LEVEL 23 mmol/L (20-29); CHLORIDE LEVEL 114 MEQ/L (98-107); CREATININE FOR GFR 0.83 MG/DL (0.55-1.30); GLOMERULAR FILTRATION RATE > 60.0 (>51); GLUCOSE, FASTING 93 MG/DL (70-100); POTASSIUM SERUM 4.5 MEQ/L (3.5-5.1); SODIUM LEVEL 141 MEQ/L (136-145)
[2022-06-01 20:34] LABS: ALBUMIN 3.6 GM/DL (3.2-5.2); ALT/SGPT 21 IU/L (0-32); BILIRUBIN,TOTAL 0.4 MG/DL (0.2-1.0); C REACTIVE PROTEIN QUANTITATIV 0.59 MG/DL (0.00-0.30); RHEUMATOID FACTOR QUANT < 10.0 IU/ML (<15.0); TOTAL PROTEIN 6.6 GM/DL (6.4-8.2)
[2022-06-04 01:07] LABS: ANA (HEP2) Negative (.); CYCLIC CITRULLINATED PEPTIDE 6 units (0-19)
== END ==
LOC: M SFHCCLAY 11:49
PROVIDERS: ATTEND Family Medicine
DX: M13.0 Polyarthritis, unspecified (principal)

== ENCOUNTER → 2022-08-12 | Outpatient (CLI) | payer OTHER ==
[2022-08-12 12:42] LABS: BASO % 0.6 % (0.0-1.0); EOS # 0.2 10^3/uL (0.0-0.5); EOS % 2.4 % (0.0-3.0); HEMATOCRIT 40.3 % (36.0-47.0); HEMOGLOBIN 12.9 g/dl (12.0-15.5); LYMPH # 1.5 10^3/uL (1.5-5.0); LYMPH % 22.5 % (24.0-44.0); MEAN CORPUSCULAR HEMOGLOBIN 29.6 pg (27.0-33.0); MEAN CORPUSCULAR VOLUME 92.4 fl (80.0-96.0); MONO # 0.4 10^3/uL (0.0-0.8); MONO % 5.8 % (2.0-8.0); NEUTROPHILS # 4.6 10^3/uL (1.5-8.5); NEUTROPHILS % 68.6 % (36.0-66.0); PLATELET COUNT, AUTOMATED 265 10^3/uL (150-450); RED BLOOD COUNT 4.36 10^6/uL (4.00-5.40); WHITE BLOOD COUNT 6.7 10^3/uL (4.0-10.0)
[2022-08-12 15:17] LABS: ALBUMIN 3.6 GM/DL (3.2-5.2); ALT/SGPT 22 U/L (12-78); BILIRUBIN,DIRECT < 0.1 MG/DL (0.0-0.2); BILIRUBIN,TOTAL 0.3 MG/DL (0.2-1.0); LIPASE 195 U/L (73-393); TOTAL PROTEIN 6.9 GM/DL (6.4-8.2)
== END ==
LOC: M LAB 11:55
PROVIDERS: ATTEND Physician Assistant
DX: K86.2 Cyst of pancreas (principal); K86.3 Pseudocyst of pancreas; Z80.0 Family history of malignant neoplasm of digestive organs; K86.1 Other chronic pancreatitis; E66.9 Obesity, unspecified

== ENCOUNTER → 2022-08-25 | Outpatient (CLI) | payer OTHER ==
[~2022-08-25] MED LIST changes: +ISOVUE-370 76% 100ML VIAL As Ordered ONE
== END ==
LOC: M RAD 09:24
PROVIDERS: ATTEND Nurse Practitioner
DX: K86.2 Cyst of pancreas (principal); K86.3 Pseudocyst of pancreas; Z80.0 Family history of malignant neoplasm of digestive organs; K86.1 Other chronic pancreatitis; E66.9 Obesity, unspecified; Z68.30 Body mass index [BMI] 30.0-30.9, adult; K76.0 Fatty (change of) liver, not elsewhere classified
CPT/HCPCS: 74178; Q9967

== ENCOUNTER → 2023-01-25 | Outpatient (CLI) | payer OTHER ==
[~2023-01-25] MED LIST changes: -ISOVUE-370 76% 100ML VIAL As Ordered ONE
== END ==
LOC: M PLAIMG 09:53
PROVIDERS: ATTEND Physician Assistant
DX: R91.8 Other nonspecific abnormal finding of lung field (principal)

== ENCOUNTER → 2023-02-08 | Outpatient (CLI) | payer OTHER | LOC: M WHC 09:36 | PROVIDERS: ATTEND Obstetrics & Gynecology | DX: Z12.31 Encounter for screening mammogram for malignant neoplasm of breast (principal) ==

== ENCOUNTER → 2023-11-22 | Outpatient (CLI) | payer OTHER | LOC: M SOG 08:23 | PROVIDERS: ATTEND Orthopaedic Surgery | DX: Z53.9 Procedure and treatment not carried out, unspecified reason (principal) ==

== ENCOUNTER → 2024-01-17 | Outpatient (CLI) | payer OTHER ==
[~2024-01-17] MED LIST changes: +ISOVUE-370 76% 100ML VIAL As Ordered ONE
== END ==
LOC: M RAD 09:41
PROVIDERS: ATTEND Physician Assistant
DX: K86.1 Other chronic pancreatitis (principal); Q45.3 Other congenital malformations of pancreas and pancreatic duct; N28.1 Cyst of kidney, acquired
CPT/HCPCS: 74170; Q9967

== ENCOUNTER → 2024-03-15 | Outpatient (REF) | payer OTHER ==
[~2024-03-15] MED LIST changes: -ISOVUE-370 76% 100ML VIAL As Ordered ONE
== END ==
LOC: M PLALAB 15:40
PROVIDERS: ATTEND Obstetrics & Gynecology
DX: Z12.4 Encounter for screening for malignant neoplasm of cervix (principal)

== ENCOUNTER → 2024-03-15 | Outpatient (CLI) | payer OTHER | LOC: M WHC 09:32 | PROVIDERS: ATTEND Obstetrics & Gynecology | DX: Z12.31 Encounter for screening mammogram for malignant neoplasm of breast (principal) ==

== ENCOUNTER → 2024-04-20 | Outpatient (CLI) | payer OTHER | LOC: M RAD 08:57 | PROVIDERS: ATTEND Family Medicine | DX: K80.20 Calculus of gallbladder without cholecystitis without obstruction (principal); K76.89 Other specified diseases of liver; N28.1 Cyst of kidney, acquired ==

== ENCOUNTER → 2024-05-31 | Outpatient (CLI) | payer OTHER | LOC: M SOG 07:56 | PROVIDERS: ATTEND Physician Assistant | DX: M79.645 Pain in left finger(s) (principal) ==

== ENCOUNTER 2024-06-07 09:36 | Day surgery (SDC) | payer OTHER ==
[~2024-06-07] VITALS: Ht 165.1 cm; Wt 84.8 kg
[~2024-06-07 09:36] MED LIST changes: +HYDR-3363 PO; +PHEN30CA21 PO; +VALS40TA9 PO
[2024-06-07] MEDS ORDERED: MIDAZOLAM INJ 2MG/2ML VIAL As Ordered ONE (09:56)
[2024-06-07] MEDS ORDERED: fentaNYL 100 MCG/2 ML INJECTION As Ordered ONE (09:56)
[2024-06-07] MEDS ORDERED: propofoL 200 MG/20 ML VIAL As Ordered ONE (09:57)
[2024-06-07] MEDS ORDERED: LIDOCAINE 2% 100MG/5ML SDV (FOR ANES.) As Ordered ONE (09:57)
[2024-06-07] MEDS ORDERED: ACETAMINOPHEN 1000MG 100ML IV BAG As Ordered ONE (09:57)
[2024-06-07] MEDS: LR 1,000 ML IV SCH (10:34)
[2024-06-07] MEDS: SCOPOLAMINE 1MG TRANSDERMAL PATCH TOP ONE (10:34)
[2024-06-07] MEDS: ceFAZolin SOD 2 GM in IV 1 EA IV ONE (11:10)
[2024-06-07] MEDS ORDERED: ONDANSETRON 4MG 2ML VIAL As Ordered ONE (11:21)
[2024-06-07] MEDS: BACITRACIN OINTMENT 30GM TUBE As Ordered ONE (11:53)
[2024-06-07] MEDS: fentaNYL 100 MCG/2 ML INJECTION IV PRN (12:22)
[2024-06-07] MEDS: ONDANSETRON 4MG 2ML VIAL IV PRN (12:35)
[2024-06-07] MEDS: HYDROMORPHONE HCL 0.5 MG/ 0.5 ML SYRINGE IV PRN (12:36)
[2024-06-07] MEDS: oxyCODONE 5MG TAB PO PRN (12:36)
[2024-06-07] MEDS: MORPHINE 4 MG/ML 1ML VIAL IV STA (14:00)
[2024-06-07 14:55] VITALS: BP 146/93; TEMP 97.3; O2SAT 98
== END 2024-06-07 15:22 | disposition home or self-care (01) ==
LOC: M SDC 09:36
PROVIDERS: ATTEND Orthopaedic Surgery Hand Surgery
DX: M72.0 Palmar fascial fibromatosis [Dupuytren] (principal); I10 Essential (primary) hypertension; E66.9 Obesity, unspecified; K86.2 Cyst of pancreas; L91.8 Other hypertrophic disorders of the skin; F12.10 Cannabis abuse, uncomplicated; Z88.5 Allergy status to narcotic agent; Z88.8 Allergy status to other drugs, medicaments and biological substances
CPT/HCPCS: 26045; 88304; 93005; J0131; J0665; J0690; J1100; J1170; J2250; J2405; J3010

== ENCOUNTER → 2025-03-16 | Outpatient (CLI) | payer OTHER ==
[~2025-03-16] MED LIST changes: +CYCL-707 PO; +NAPR-885 PO; +TOPI-256 PO
== END ==
LOC: M WHC 09:05
PROVIDERS: ATTEND Family Medicine
DX: Z12.31 Encounter for screening mammogram for malignant neoplasm of breast (principal); R92.323 Mammographic fibroglandular density, bilateral breasts

== ENCOUNTER 2025-06-23 06:32 | Emergency (ER) | payer OTHER ==
[~2025-06-23] VITALS: Ht 165.1 cm; Wt 89.4 kg
[2025-06-23 06:35] VITALS: TEMP 97.1
[2025-06-23 08:17] VITALS: O2SAT 98
[2025-06-23] MEDS: ACETAMINOPHEN 500 MG TAB PO ONE (08:54)
[2025-06-23] MEDS ORDERED: VALSARTAN 40MG TABLET PO ONE (08:55)
[2025-06-23 09:06] LABS: BASO # 0.0 10^3/uL (0.0-0.2); BASO % 0.2 % (0.0-1.0); EOS # 0.1 10^3/uL (0.0-0.5); EOS % 0.7 % (0.0-3.0); LYMPH # 2.1 10^3/uL (1.5-5.0); LYMPH % 24.6 % (24.0-44.0); MONO # 0.5 10^3/uL (0.0-0.8); MONO % 5.9 % (2.0-8.0); NEUTROPHILS # 5.7 10^3/uL (1.5-8.5); NEUTROPHILS % 67.7 % (36.0-66.0); PLATELET COUNT, AUTOMATED 269 10^3/uL (150-450)
[2025-06-23 09:25] LABS: CPK CREATINE PHOSPHOKINASE 76 U/L (34-145)
[2025-06-23 09:26] LABS: CALCIUM LEVEL 8.2 MG/DL (8.5-10.1); CARBON DIOXIDE LEVEL 20 MMOL/L (20-31); CHLORIDE LEVEL 112 MMOL/L (98-107); CK-MB VALUE MASS < 1.0 NG/ML (<3.6); CREATININE FOR GFR 0.75 MG/DL (0.55-1.30); GLOMERULAR FILTRATION RATE > 90.0 (>51); MAGNESIUM LEVEL 2.0 MG/DL (1.8-2.4); POTASSIUM SERUM 4.0 MMOL/L (3.5-5.1); SODIUM LEVEL 145 MMOL/L (136-145)
[2025-06-23] MEDS ORDERED: HYDR-3713 PO (10:10)
[2025-06-23 10:22] VITALS: BP 140/90
== END 2025-06-23 10:33 | disposition home or self-care (01) ==
LOC: M ED 06:32
DX: S92.322A Displaced fracture of second metatarsal bone, left foot, initial encounter for closed fracture (principal); S92.335A Nondisplaced fracture of third metatarsal bone, left foot, initial encounter for closed fracture; S92.345A Nondisplaced fracture of fourth metatarsal bone, left foot, initial encounter for closed fracture; S92.355A Nondisplaced fracture of fifth metatarsal bone, left foot, initial encounter for closed fracture; R00.2 Palpitations; X50.0XXA Overexertion from strenuous movement or load, initial encounter; M85.872 Other specified disorders of bone density and structure, left ankle and foot; M77.32 Calcaneal spur, left foot; I10 Essential (primary) hypertension; F17.200 Nicotine dependence, unspecified, uncomplicated; Y92.410 Unspecified street and highway as the place of occurrence of the external cause; Y93.01 Activity, walking, marching and hiking; Y99.9 Unspecified external cause status; Z88.5 Allergy status to narcotic agent; Z88.8 Allergy status to other drugs, medicaments and biological substances; Z79.1 Long term (current) use of non-steroidal anti-inflammatories (NSAID); Z79.899 Other long term (current) drug therapy

== ENCOUNTER → 2025-09-14 | Outpatient (REF) | payer OTHER ==
[~2025-09-14] MED LIST changes: +HYDR-3713 PO
[2025-09-18 13:37] LABS: HPV APTIMA Not Detected (Not Detected)
== END ==
LOC: M PLALAB 11:06
PROVIDERS: ATTEND Student in an Organized Health Care Education/Training Program
DX: Z01.419 Encounter for gynecological examination (general) (routine) without abnormal findings (principal)

== ENCOUNTER → 2025-09-26 | Outpatient (CLI) | payer OTHER | LOC: M WHC 13:25 | PROVIDERS: ATTEND Student in an Organized Health Care Education/Training Program | DX: E28.39 Other primary ovarian failure (principal); M81.0 Age-related osteoporosis without current pathological fracture ==